=== PATIENT | female | born 1960 | race Hispanic/Latino ===

== ENCOUNTER 2017-12-14 11:38 | Emergency (ER) | payer BC, OTHER ==
[2017-12-14] MEDS: AUGMENTIN 875 MG TAB PO (14:16)
== END 2017-12-14 14:20 | disposition home or self-care (01) ==
LOC: M ED 11:38
DX: J01.90 Acute sinusitis, unspecified (principal); I10 Essential (primary) hypertension; Z88.5 Allergy status to narcotic agent; Z79.890 Hormone replacement therapy; Z79.899 Other long term (current) drug therapy
CPT/HCPCS: 87880

== ENCOUNTER → 2017-12-27 | Outpatient (REF) | payer OTHER, BC ==
[2017-12-27 18:02] LABS: BASO # 0.1 10^3/uL (0.0-0.2); BASO % 0.9 % (0.0-1.0); EOS # 0.3 10^3/uL (0.0-0.50); EOS % 3.6 % (0.0-3.0); HEMATOCRIT 41.7 % (36.0-47.0); HEMOGLOBIN 14.4 g/dl (12.0-15.5); IMMATURE GRANULOCYTE % 0.4 % (0-3.0); LYMPH # 1.9 10^3/uL (1.5-4.5); LYMPH % 27.9 % (24.0-44.0); MEAN CORPUSCULAR HEMOGLOBIN 31.1 pg (27.0-33.0); MEAN CORPUSCULAR HGB CONC 34.5 g/dl (32.0-36.5); MEAN CORPUSCULAR VOLUME 90.1 fl (80.0-96.0); MONO # 0.6 10^3/uL (0.0-0.8); MONO % 8.6 % (0.0-5.0); NEUTROPHILS # 4.1 10^3/uL (1.8-7.7); NEUTROPHILS % 58.6 % (36.0-66.0); PLATELET COUNT, AUTOMATED 257 10^3/uL (150-450); RED BLOOD COUNT 4.63 10^6/uL (4.00-5.40); RED CELL DISTRIBUTION WIDTH 12.5 % (11.5-14.5)
[2017-12-27 18:05] LABS: THYROID PEROXIDASE ANTIBODY > 1300.0 U/ML (<60.0)
[2017-12-27 18:17] LABS: ALBUMIN 3.6 GM/DL (3.2-5.2); ALBUMIN/GLOBULIN RATIO 0.86 (1.00-1.93); ALKALINE PHOSPHATASE 63 U/L (45-117); ALT/SGPT 69 U/L (12-78); ANION GAP 10 MEQ/L (8-16); AST/SGOT 40 U/L (7-37); BILIRUBIN,TOTAL 1.2 MG/DL (0.2-1.0); BLOOD UREA NITROGEN 16 MG/DL (7-18); C REACTIVE PROTEIN QUANTITATIV 0.37 MG/DL (0.00-0.30); CALCIUM LEVEL 9.3 MG/DL (8.5-10.1); CARBON DIOXIDE LEVEL 28 MEQ/L (21-32); CHLORIDE LEVEL 102 MEQ/L (98-107); CREATININE FOR GFR 0.65 MG/DL (0.55-1.30); FREE T4 1.38 NG/DL (0.76-1.46); GLOMERULAR FILTRATION RATE > 60.0 (>51); GLUCOSE, FASTING 176 MG/DL (70-100); LIPASE 175 U/L (73-393); POTASSIUM SERUM 3.6 MEQ/L (3.5-5.1); SODIUM LEVEL 140 MEQ/L (136-145); THYROID STIMULATING HORMONE 0.919 uIU/ML (0.358-3.740); TOTAL PROTEIN 7.8 GM/DL (6.4-8.2)
[2017-12-27 19:00] LABS: ERYTHROCYTE SEDIMENTATION RATE 30 mm/hr (0-30)
[2017-12-29 15:25] LABS: H PYLORI SERUM QUANT IgG ABY 0.49 (0.00-0.79)
== END ==
LOC: M SFHCPLAZ 15:19
DX: R13.12 Dysphagia, oropharyngeal phase (principal); E03.9 Hypothyroidism, unspecified; R51 Headache
CPT/HCPCS: 83690

== ENCOUNTER → 2017-12-28 | Outpatient (CLI) | payer BC, OTHER ==
[~2017-12-28] MED LIST: E-Z-GAS II EFFERVESCENT PACKET (SODIUM BICARB./CITRIC ACID/SIMETHICONE) As Ordered; E-Z-HD 98% w/w 340GM SUSP BTL As Ordered; E-Z-PAQUE 96% w/w SUSP 176GM BTL As Ordered
== END ==
LOC: M RAD 08:25
DX: R13.12 Dysphagia, oropharyngeal phase (principal)
CPT/HCPCS: 74220

== ENCOUNTER → 2018-01-27 | Outpatient (CLI) | payer OTHER | LOC: M WHC 11:06 | DX: E06.3 Autoimmune thyroiditis (principal) | CPT/HCPCS: 76536 ==

== ENCOUNTER → 2018-02-01 | Outpatient (CLI) | payer OTHER, BC | LOC: M ST 14:01 | DX: K22.4 Dyskinesia of esophagus (principal) | CPT/HCPCS: 74230 ==

== ENCOUNTER → 2018-04-04 | Outpatient (CLI) | payer OTHER | LOC: M WHC 12:43 | DX: Z12.31 Encounter for screening mammogram for malignant neoplasm of breast (principal); Z78.0 Asymptomatic menopausal state; Z80.41 Family history of malignant neoplasm of ovary | CPT/HCPCS: 77067 ==

== ENCOUNTER 2018-07-09 11:45 | Emergency (ER) | payer BC, OTHER ==
[~2018-07-09] VITALS: Ht 170.2 cm; Wt 109.1 kg
[~2018-07-09 11:45] MED LIST changes: +ATEN100T PO; +AUGM875T28 PO; -E-Z-GAS II EFFERVESCENT PACKET (SODIUM BICARB./CITRIC ACID/SIMETHICONE) As Ordered; -E-Z-HD 98% w/w 340GM SUSP BTL As Ordered; -E-Z-PAQUE 96% w/w SUSP 176GM BTL As Ordered; +LOSA100T5 PO; +NAPR-50 PO; +SYNT175T2 PO
[2018-07-09] MEDS ORDERED: APAP325T4 PO (11:55)
[2018-07-09] MEDS ORDERED: GLIM2TAB PO (11:55)
[2018-07-09] MEDS ORDERED: METF-839 PO (11:55)
[2018-07-09] MEDS ORDERED: IBUP-1022 PO ×2 (11:55→14:38)
[2018-07-09 12:53] LABS: INFLUENZA A AMPLIFICATION NEGATIVE (NEGATIVE); INFLUENZA B AMPLIFICATION NEGATIVE (NEGATIVE)
[2018-07-09] MEDS ORDERED: ACETAMINOPHEN 325 MG TAB PO ONE (13:45)
[2018-07-09] MEDS ORDERED: ALBUTEROL SULFATE 2.5 MG/0.5 ML INH NEB SOLN INH ONE (13:45)
[2018-07-09] MEDS ORDERED: ONDANSETRON 4 MG ORAL DISINTEGRATING TAB (Q0162 PER 1MG) PO ONE (14:00)
--- NOTE | 2018-07-09 14:20 | REP ---
CHEST PA AND LATERAL: 07/09/2018. COMPARISON: PA chest, 12/28/2017. CLINICAL HISTORY: Cough and fevers. FINDINGS: Lungs are well inflated. There is patchy atelectasis or infiltrate above the right diaphragm, new compared to the previous study. The left lung remains clear. The heart, mediastinal and hilar contours are unchanged. I see no vascular redistribution or edema. The aorta and airway intact. The bony thorax shows no focal lesion or compression deformity. No free air under the diaphragm. IMPRESSION: 1. Right base shows some patchy atelectasis or early infiltrate just above the diaphragm as a new finding compared to the December 2017 study. No effusion or other acute finding. Electronically Signed by Ayush Boles MD 07/09/2018 07:53 P
[2018-07-09] MEDS ORDERED: MUCI600T37 PO (14:38)
[2018-07-09] MEDS ORDERED: VENTAER INH (14:38)
[2018-07-09] MEDS ORDERED: AUGM875T28 PO (14:38)
[2018-07-09] MEDS ORDERED: ONDA4TAB6 PO (14:38)
[2018-07-09 14:50] VITALS: BP 128/65
== END 2018-07-09 14:52 | disposition home or self-care (01) ==
LOC: M ED 11:45
DX: J18.9 Pneumonia, unspecified organism (principal); J98.01 Acute bronchospasm; R91.8 Other nonspecific abnormal finding of lung field; Z90.49 Acquired absence of other specified parts of digestive tract; R51 Headache; I10 Essential (primary) hypertension; E78.00 Pure hypercholesterolemia, unspecified; K57.90 Diverticulosis of intestine, part unspecified, without perforation or abscess without bleeding; E03.9 Hypothyroidism, unspecified; Z79.899 Other long term (current) drug therapy; Z88.5 Allergy status to narcotic agent
CPT/HCPCS: 71046; 87631; 87880; 94640; 99284; Q0162

== ENCOUNTER → 2018-08-15 | Outpatient (CLI) | payer OTHER ==
[~2018-08-15] MED LIST changes: +APAP325T4 PO; +GLIM2TAB PO; +IBUP-1022 PO; +METF-839 PO; +MUCI600T37 PO; +ONDA4TAB6 PO; +VENTAER INH
--- NOTE | 2018-08-15 15:51 | REP ---
Clinical: Chest pain. Pneumonia . Comparison: 07/09/2018 . Technique: PA and lateral. Findings: The mediastinum and cardiac silhouette are normal. The lung france are clear and without acute consolidation, effusion, or pneumothorax. The skeletal structures are intact and normal. Impression: 1. No acute cardiopulmonary process. Electronically Signed by Jose Dickey MD 08/15/2018 03:42 P
[2018-08-15 17:43] LABS: HEMOGLOBIN A1c 5.8 %
[2018-08-15 17:48] LABS: ALBUMIN 3.7 GM/DL (3.2-5.2); ALT/SGPT 37 U/L (12-78); BILIRUBIN,TOTAL 0.7 MG/DL (0.2-1.0); BLOOD UREA NITROGEN 18 MG/DL (7-18); CALCIUM LEVEL 9.6 MG/DL (8.5-10.1); CARBON DIOXIDE LEVEL 30 MEQ/L (21-32); CHLORIDE LEVEL 102 MEQ/L (98-107); CREATININE FOR GFR 0.72 MG/DL (0.55-1.30); GLOMERULAR FILTRATION RATE > 60.0 (>51); GLUCOSE, FASTING 88 MG/DL (70-100); POTASSIUM SERUM 3.9 MEQ/L (3.5-5.1); SODIUM LEVEL 138 MEQ/L (136-145); THYROID STIMULATING HORMONE 0.335 uIU/ML (0.358-3.740); TOTAL PROTEIN 7.6 GM/DL (6.4-8.2)
== END ==
LOC: M WUC 15:13
PROVIDERS: ATTEND Internal Medicine
DX: Z00.00 Encounter for general adult medical examination without abnormal findings (principal); E03.9 Hypothyroidism, unspecified; I10 Essential (primary) hypertension; E11.9 Type 2 diabetes mellitus without complications; E78.5 Hyperlipidemia, unspecified; J18.9 Pneumonia, unspecified organism

== ENCOUNTER 2018-09-12 20:12 | Emergency (ER) | payer OTHER ==
[2018-09-11] MEDS: NITROGLYCERIN 0.4 MG SUBL TABLET SL PRN (21:17)
[~2018-09-12] VITALS: Ht 170.2 cm; Wt 108.0 kg
[~2018-09-12 20:12] MED LIST changes: -NAPR-50 PO; +NAPR-837 PO
[2018-09-12] MEDS ORDERED: ROSU5TAB4 PO (20:22)
[2018-09-12] MEDS ORDERED: KP F1200 PO (20:22)
[2018-09-12] MEDS ORDERED: ASPIRIN 81 MG CHEW TABLET PO ONE (20:45)
[2018-09-12] MEDS: NITROGLYCERIN 0.4 MG SUBL TABLET SL PRN ×2 (20:57→21:10)
[2018-09-12 21:07] LABS: BASO # 0.1 10^3/uL (0.0-0.2); BASO % 0.7 % (0.0-1.0); EOS # 0.3 10^3/uL (0.0-0.50); HEMATOCRIT 40.5 % (36.0-47.0); HEMOGLOBIN 13.9 g/dl (12.0-15.5); LYMPH # 2.4 10^3/uL (1.5-4.5); LYMPH % 33.7 % (24.0-44.0); MEAN CORPUSCULAR HEMOGLOBIN 30.6 pg (27.0-33.0); MEAN CORPUSCULAR HGB CONC 34.3 g/dl (32.0-36.5); MEAN CORPUSCULAR VOLUME 89.2 fl (80.0-96.0); MONO # 0.5 10^3/uL (0.0-0.8); MONO % 7.1 % (0.0-5.0); NEUTROPHILS # 3.9 10^3/uL (1.8-7.7); NEUTROPHILS % 54.1 % (36.0-66.0); PLATELET COUNT, AUTOMATED 265 10^3/uL (150-450); RED BLOOD COUNT 4.54 10^6/uL (4.00-5.40); WHITE BLOOD COUNT 7.2 10^3/uL (4.0-10.0)
[2018-09-12 21:19] LABS: INR 0.95; PROTHROMBIN TIME 12.8 SECONDS (12.1-14.4)
[2018-09-12 21:22] LABS: D-DIMER QUANT 393.46 ng/ml (<500)
[2018-09-12] MEDS ORDERED: ACETAMINOPHEN TAB 650MG DOSE (2X325MG) PO ONE (21:30)
[2018-09-12] MEDS ORDERED: PANTOPRAZOLE 40MG INJ (PROTONIX) (C9113) IV ONE (21:30)
[2018-09-12 21:41] LABS: ALBUMIN 3.7 GM/DL (3.2-5.2); ALT/SGPT 33 U/L (12-78); BILIRUBIN,DIRECT 0.2 MG/DL (0.0-0.2); BLOOD UREA NITROGEN 17 MG/DL (7-18); CALCIUM LEVEL 9.5 MG/DL (8.5-10.1); CARBON DIOXIDE LEVEL 28 MEQ/L (21-32); CHLORIDE LEVEL 103 MEQ/L (98-107); CPK CREATINE PHOSPHOKINASE 65 U/L (26-192); CREATININE FOR GFR 0.79 MG/DL (0.55-1.30); GLOMERULAR FILTRATION RATE > 60.0 (>51); GLUCOSE, FASTING 160 MG/DL (70-100); LIPASE 279 U/L (73-393); MB/CK RELATIVE INDEX 1.54 (< OR =4); NT-PRO BNP 35 PG/ML (<125); POTASSIUM SERUM 3.5 MEQ/L (3.5-5.1); SODIUM LEVEL 138 MEQ/L (136-145); TOTAL PROTEIN 7.6 GM/DL (6.4-8.2); TROPONIN I 0.03 NG/ML (< 0.10)
[2018-09-12] MEDS ORDERED: ISOVUE-370 76% 100ML VIAL (Q9967) As Ordered ONE (22:16)
[2018-09-12] MEDS ORDERED: GI COCKTAIL 50ML BTL(HYOSCYAMINE/MAALOX/LIDOCAINE VISCOUS)(1:3:1) PO ONE (23:15)
--- NOTE | 2018-09-12 23:30 | REPVR ---
EXAM: CT Angiography Chest With Contrast EXAM DATE/TIME: 09/12/2018 10:33 PM CLINICAL HISTORY: 58 years old, female; Chest pain; Additional info: R/O pe TECHNIQUE: Imaging protocol: Axial computed tomographic angiography images of the chest with intravenous contrast using CT angiography protocol. Coronal and sagittal reformatted images were created and reviewed. 3D rendering: MIP reconstructed images were created and reviewed. Radiation optimization: All CT scans at this facility use at least one of these dose optimization techniques: automated exposure control; mA and/or kV adjustment per patient size (includes targeted exams where dose is matched to clinical indication); or iterative reconstruction. Contrast material: ISOVUE 370; Contrast volume: 75 ml; Contrast route: IV; COMPARISON: CR PORTABLE CHEST X-RAY 09/12/2018 8:58 PM FINDINGS: Pulmonary arteries: Normal. No pulmonary emboli. Aorta: Normal. No aortic aneurysm. No aortic dissection. Lungs: No consolidation. No masses. Calcified granuloma in the right upper lobe. Mild groundglass opacities in the periphery of the lungs bilaterally. Pleural space: Normal. No pneumothorax. No pleural effusion. Heart: Normal. No cardiomegaly. No pericardial effusion. Lymph nodes: Unremarkable. No enlarged lymph nodes. Bones/joints: Unremarkable. No acute fracture. Soft tissues: Unremarkable. IMPRESSION: Negative for pulmonary embolism. Mild groundglass opacities in the periphery of the lungs bilaterally. Unknown etiology. Possible mild atelectasis versus contusions versus pneumonitis. Electronically signed by: Jade Gutierrez On 09/12/2018 23:29:37 PM
[2018-09-13 00:37] LABS: CK-MB VALUE MASS < 1.0 NG/ML (<3.6); CPK CREATINE PHOSPHOKINASE 54 U/L (26-192); MB/CK RELATIVE INDEX 1.85 (< OR =4); TROPONIN I 0.05 NG/ML (< 0.10)
--- NOTE | 2018-09-13 01:44 | ECGEPIP ---
Stationary ECG Study 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
[2018-09-13 02:38] LABS: CK-MB VALUE MASS < 1.0 NG/ML (<3.6); CPK CREATINE PHOSPHOKINASE 51 U/L (26-192); MB/CK RELATIVE INDEX 1.96 (< OR =4); TROPONIN I 0.04 NG/ML (< 0.10)
[2018-09-13] MEDS ORDERED: HEPARIN DRIP 25,000 UNITS in APPROPRIATE DILUENT 1 EA IV SCH (03:56)
[2018-09-13 04:00] VITALS: BP 166/72
[2018-09-13] MEDS ORDERED: HEPARIN SOD (PORCINE) 5000 UNITS/ML VIAL IV ONE (04:00)
[2018-09-13] MEDS ORDERED: NITROGLYCERIN 2% OINT 1 GM *U/D* PKT TOP ONE (04:00)
[2018-09-13 04:38] VITALS: BP 169/78
--- NOTE | 2018-09-13 08:21 | REP ---
Oral chest x-ray: Single view. History: Chest pain. Comparison chest x-ray: August 15, 2018. Findings: EKG monitoring electrodes overlie the chest. Heart is not enlarged. Lung france are clear. Pulmonary vasculature is not increased. No significant bony abnormality is appreciated. Impression: No acute disease. Electronically Signed by Poncho Casillas MD 09/13/2018 08:13 A
--- NOTE | 2018-09-13 23:09 | ECGEPIP ---
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
--- NOTE | 2018-09-13 23:10 | ECGEPIP ---
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
--- NOTE | 2018-09-13 23:12 | ECGEPIP ---
Stationary ECG Study [facility] - ED Test Date: 2018-09-13 Pat Name: BEREKET ROCKWELL Department: Room: - Gender: F Supervisor Plasma: : 1960 Requested By: Asim Paul Order Number: [id number] Reading MD: Asim Baker Measurements Intervals [place] Rate: 65 P: 48 [place]: 200 QRS: -37 QRSD: 160 T: 98 QT: 494 QTc: 517 Interpretive Statements SINUS RHYTHM MARKED LEFT AXIS DEVIATION LEFT BUNDLE BRANCH BLOCK, NEW AND RECURRENT COMPARED TO RECENT PRIOR, CONSIDER ISCHEMIA ISCHEMIA Electronically Signed On 09-13-2018 23:12:15 EDT by Asim Baker
== END 2018-09-13 04:59 | disposition short-term general hospital (02) ==
LOC: M ED 20:12
DX: I20.0 Unstable angina (principal); I44.7 Left bundle-branch block, unspecified; I10 Essential (primary) hypertension; E78.5 Hyperlipidemia, unspecified; R06.02 Shortness of breath; E11.9 Type 2 diabetes mellitus without complications; Z88.5 Allergy status to narcotic agent; Z79.899 Other long term (current) drug therapy; Z79.84 Long term (current) use of oral hypoglycemic drugs
CPT/HCPCS: 71045; 71275; 80048; 80076; 82550; 82553; 83690; 83880; 84484; 85025; 85379; 85610; 85730; 93005; 93041; 94760; 96374; 96375; 99285; C9113; Q9967

== ENCOUNTER → 2018-10-26 | Outpatient (CLI) | payer OTHER ==
[~2018-10-26] MED LIST changes: +KP F1200 PO; +ROSU5TAB4 PO
[2018-10-26 17:21] LABS: BLOOD UREA NITROGEN 16 MG/DL (7-18); CARBON DIOXIDE LEVEL 28 MEQ/L (21-32); CHLORIDE LEVEL 105 MEQ/L (98-107); CREATININE FOR GFR 0.76 MG/DL (0.55-1.30); GLOMERULAR FILTRATION RATE > 60.0 (>51); GLUCOSE, FASTING 100 MG/DL (70-100); POTASSIUM SERUM 3.9 MEQ/L (3.5-5.1); SODIUM LEVEL 140 MEQ/L (136-145); THYROID STIMULATING HORMONE 0.381 uIU/ML (0.358-3.740)
== END ==
LOC: M WUC 13:51
PROVIDERS: ATTEND Internal Medicine
DX: E03.9 Hypothyroidism, unspecified (principal); R07.89 Other chest pain

== ENCOUNTER → 2018-11-16 | Outpatient (CLI) | payer OTHER ==
[2018-11-16 16:40] LABS: BLOOD UREA NITROGEN 14 MG/DL (7-18); CALCIUM LEVEL 9.8 MG/DL (8.5-10.1); CARBON DIOXIDE LEVEL 31 MEQ/L (21-32); CHLORIDE LEVEL 104 MEQ/L (98-107); CREATININE FOR GFR 0.67 MG/DL (0.55-1.30); GLOMERULAR FILTRATION RATE > 60.0 (>51); GLUCOSE, FASTING 102 MG/DL (70-100); POTASSIUM SERUM 4.2 MEQ/L (3.5-5.1); SODIUM LEVEL 140 MEQ/L (136-145); TROPONIN I 0.04 NG/ML (< 0.10)
== END ==
LOC: M WUC 12:37
PROVIDERS: ATTEND Internal Medicine Cardiovascular Disease
DX: R07.9 Chest pain, unspecified (principal); R00.2 Palpitations

== ENCOUNTER → 2018-11-17 | Outpatient (CLI) | payer OTHER ==
[2018-11-17 17:08] LABS: HEMOGLOBIN A1c 6.2 %
[2018-11-17 17:14] LABS: ALBUMIN 3.8 GM/DL (3.2-5.2); ALT/SGPT 27 U/L (12-78); BLOOD UREA NITROGEN 14 MG/DL (7-18); CALCIUM LEVEL 9.6 MG/DL (8.5-10.1); CARBON DIOXIDE LEVEL 29 MEQ/L (21-32); CHLORIDE LEVEL 103 MEQ/L (98-107); CHOLESTEROL LEVEL 169 MG/DL (<200); CHOLESTEROL RISK RATIO 3.313 (<5); CREATININE FOR GFR 0.76 MG/DL (0.55-1.30); GLOMERULAR FILTRATION RATE > 60.0 (>51); GLUCOSE, FASTING 110 MG/DL (70-100); HDL CHOLESTEROL 51 MG/DL (>40); LDL CHOLESTEROL 94 MG/DL (<100); NON-HDL-C 118 MG/DL; POTASSIUM SERUM 4.1 MEQ/L (3.5-5.1); SODIUM LEVEL 138 MEQ/L (136-145); THYROID STIMULATING HORMONE 0.425 uIU/ML (0.358-3.740); TRIGLYCERIDES LEVEL 119 MG/DL (<150)
[2018-11-17 17:23] LABS: CREATININE, URINE 74.4 MG/DL; MALB URINE SIEMENS 12.3 MG/L; MAU/CREAT RATIO 16.5 MCG/MG (0.0-30.0)
== END ==
LOC: M WUC 11:15
PROVIDERS: ATTEND Internal Medicine
DX: I10 Essential (primary) hypertension (principal); E11.9 Type 2 diabetes mellitus without complications; E03.9 Hypothyroidism, unspecified; E78.5 Hyperlipidemia, unspecified

== ENCOUNTER 2018-12-20 08:30 | Emergency (ER) | payer OTHER ==
[~2018-12-20] VITALS: Ht 170.2 cm; Wt 104.5 kg
[~2018-12-20 08:30] MED LIST changes: -ROSU5TAB4 PO; +ROSU5TAB5 PO
[2018-12-20] MEDS ORDERED: NS 1,000 ML IV SCH (08:54)
[2018-12-20] MEDS ORDERED: KETOROLAC 30 MG/ML VIAL (J1885) IV ONE (09:00)
[2018-12-20] MEDS ORDERED: ONDANSETRON 4MG/2ML VIAL (J2405) IV ONE (09:00)
[2018-12-20 09:29] LABS: BASO # 0.1 10^3/uL (0.0-0.2); BASO % 0.7 % (0.0-1.0); EOS # 0.3 10^3/uL (0.0-0.50); EOS % 4.2 % (0.0-3.0); HEMATOCRIT 42.6 % (36.0-47.0); HEMOGLOBIN 14.4 g/dl (12.0-15.5); LYMPH # 1.3 10^3/uL (1.5-4.5); LYMPH % 18.2 % (24.0-44.0); MEAN CORPUSCULAR HEMOGLOBIN 30.5 pg (27.0-33.0); MEAN CORPUSCULAR HGB CONC 33.8 g/dl (32.0-36.5); MEAN CORPUSCULAR VOLUME 90.3 fl (80.0-96.0); MONO # 0.7 10^3/uL (0.0-0.8); MONO % 9.6 % (0.0-5.0); NEUTROPHILS # 4.6 10^3/uL (1.8-7.7); NEUTROPHILS % 66.9 % (36.0-66.0); PLATELET COUNT, AUTOMATED 268 10^3/uL (150-450); RED BLOOD COUNT 4.72 10^6/uL (4.00-5.40); WHITE BLOOD COUNT 6.9 10^3/uL (4.0-10.0)
[2018-12-20] MEDS ORDERED: fentaNYL 100 MCG/2 ML INJECTION (J3010) IV PRN (09:45)
[2018-12-20 10:04] LABS: ALBUMIN 3.9 GM/DL (3.2-5.2); BILIRUBIN,DIRECT 0.2 MG/DL (0.0-0.2); BILIRUBIN,TOTAL 1.2 MG/DL (0.2-1.0)
[2018-12-20] MEDS: fentaNYL 100 MCG/2 ML INJECTION (J3010) IV ONE ×2 (10:21→10:47)
--- NOTE | 2018-12-20 11:20 | REP ---
CT abdomen pelvis without IV or bowel contrast for right flank pain: There are no comparisons. The visualized lung fr[place] demonstrate focal areas of atelectasis in the left lower lobe but otherwise unremarkable. The unenhanced hepatic parenchyma, gallbladder, pancreas, spleen and adrenals are unremarkable. There are no renal calculi on the right on the left. There is no hydronephrosis on the right on the left. There is a left renal 13 mm exophytic simple cyst. The abdominal aorta is unremarkable. There is no retroperitoneal adenopathy or mass. There is no bowel distension or obstruction. Mesentery is unremarkable. Pelvis: The appendix and terminal ileum are unremarkable. The uterus, adnexa are unremarkable except for phleboliths. There is a circumferential suture ring in the sigmoid colon compatible with anastomosis. There are a few diverticula in the descending colon without evidence of diverticulitis. There is no ascites or adenopathy. The uterus, adnexa and bladder are unremarkable. I suspect there is anterior pelvic wall surgical mesh. This should be correlated with the patient's surgical history. Impression: There are no renal calculi. There are no ureteral calculi. There is no hydronephrosis or perinephric stranding. There are phleboliths in the pelvis. I suspect there is anterior pelvic wall mesh. This should be correlated with surgical history. Otherwise, essentially negative CT of the abdomen and pelvis. Electronically Signed by Ki Ayala MD 12/20/2018 11:11 A
[2018-12-20] MEDS ORDERED: fentaNYL 100 MCG/2 ML INJECTION (J3010) IV ONE ×2 (12:30→14:15)
[2018-12-20] MEDS ORDERED: GABAPENTIN 300 MG CAP PO ONE (12:45)
[2018-12-20] MEDS ORDERED: NEUR300C PO (15:26)
[2018-12-20] MEDS ORDERED: PERC5TAB12 PO (15:27)
[2018-12-20] MEDS ORDERED: VALA1TAB2 PO (15:33)
[2018-12-20 15:56] VITALS: BP 138/69
== END 2018-12-20 15:58 | disposition home or self-care (01) ==
LOC: M ED 08:39
DX: R10.9 Unspecified abdominal pain (principal); R21 Rash and other nonspecific skin eruption; Z86.19 Personal history of other infectious and parasitic diseases; E11.9 Type 2 diabetes mellitus without complications; Z87.440 Personal history of urinary (tract) infections; Z88.5 Allergy status to narcotic agent; Z79.899 Other long term (current) drug therapy; Z79.84 Long term (current) use of oral hypoglycemic drugs
CPT/HCPCS: 74176; 80047; 80076; 81001; 83690; 85025; 96374; 96375; 96376; 99285; J1885; J2405; J3010

== ENCOUNTER → 2019-06-22 | Outpatient (CLI) | payer OTHER, BC ==
[~2019-06-22] MED LIST changes: -GLIM2TAB PO; +GLIM2TAB4 PO; +NEUR300C PO; +PERC5TAB12 PO; +VALA1TAB64 PO
== END ==
LOC: M PLALAB 09:28
PROVIDERS: ATTEND Physician Assistant
DX: R07.89 Other chest pain (principal)

== ENCOUNTER → 2019-11-28 | Outpatient (CLI) | payer OTHER ==
[~2019-11-28] MED LIST changes: +VALA1TAB5 PO; -VALA1TAB64 PO
--- NOTE | 2019-11-28 16:42 | REP ---
RENAL ULTRASOUND WITH DUPLEX DOPPLER RENAL ARTERY EVALUATION: Real-time ultrasound evaluation of kidneys performed. Kidneys are normal in size and echotexture, right kidney measuring 12.6 x 6.9 x 5.3 cm, and left kidney 11.7 x 6.2 x 6.0 cm. There is no hydronephrosis bilaterally. There is a cyst in the upper left kidney laterally 1.4 cm in diameter. Urinary bladder is not well distended and not well evaluated. Real-time ultrasound evaluation and duplex Doppler interrogation of the renal arteries is performed bilaterally. Peak systolic velocity of the abdominal aorta at the level of the renal arteries is 68.8 cm/s. Peak systolic velocity of the main right renal artery is 80.4 cm/s, although the origin of the main right renal artery is not visualized due to overlying bowel gas. [id number] ratio 1.2. Resistive indices are measured in the upper, middle, and lower thirds of the right kidney and range between 0.62 and 0.67. Acceleration times range between 0.016 and 0.047. Proximal left renal artery is not visualized. Distally, peak systolic velocity is 62.7 cm/s, [id number] ratio 0.9. Resistive indices left kidney range between 0.62 and 0.65. Acceleration times range between 0.028 and 0.033. IMPRESSION: Somewhat limited exam due to overlying bowel gas, obscuring the proximal main renal arteries bilaterally. No definite duplex Doppler sonographic evidence of significant renal artery stenosis bilaterally. Complete evaluation could be obtained with CTA or MRA. Electronically Signed by Ki Cervantes MD 11/28/2019 07:53 P
== END ==
LOC: M RAD 08:36
PROVIDERS: ATTEND Physician Assistant
DX: I10 Essential (primary) hypertension (principal); Z87.448 Personal history of other diseases of urinary system

== ENCOUNTER → 2020-02-11 | Outpatient (REF) | LOC: M EMP 09:47 | PROVIDERS: ATTEND Family Medicine | DX: Z20.828 Contact with and (suspected) exposure to other viral communicable diseases (principal) ==

== ENCOUNTER → 2020-04-09 | Outpatient (CLI) | payer OTHER ==
[2020-04-09 11:11] LABS: ALBUMIN 3.8 GM/DL (3.2-5.2); ALT/SGPT 19 U/L (12-78); BLOOD UREA NITROGEN 19 MG/DL (7-18); CALCIUM LEVEL 9.3 MG/DL (8.5-10.1); CARBON DIOXIDE LEVEL 30 MEQ/L (21-32); CHLORIDE LEVEL 105 MEQ/L (98-107); CHOLESTEROL LEVEL 170 MG/DL (<200); CHOLESTEROL RISK RATIO 3.541 (<5); CREATININE FOR GFR 0.68 MG/DL (0.55-1.30); GLOMERULAR FILTRATION RATE > 60.0 (>51); GLUCOSE, FASTING 95 MG/DL (70-100); HDL CHOLESTEROL 48 MG/DL (>40); LDL CHOLESTEROL 95 MG/DL (<100); NON-HDL-C 122 MG/DL; SODIUM LEVEL 140 MEQ/L (136-145); TOTAL PROTEIN 7.8 GM/DL (6.4-8.2); TRIGLYCERIDES LEVEL 135 MG/DL (<150)
[2020-04-09 12:12] LABS: HEMOGLOBIN A1c 5.6 %
== END ==
LOC: M WUC 08:02
PROVIDERS: ATTEND Internal Medicine
DX: I10 Essential (primary) hypertension (principal); E11.9 Type 2 diabetes mellitus without complications; E03.9 Hypothyroidism, unspecified; E78.5 Hyperlipidemia, unspecified

== ENCOUNTER → 2021-05-02 | Outpatient (REF) | LOC: M LABSMTC 09:57 | PROVIDERS: ATTEND Family Medicine | DX: Z11.52 Encounter for screening for COVID-19 (principal); Z20.822 Contact with and (suspected) exposure to COVID-19 ==

== ENCOUNTER → 2022-02-05 | Outpatient (CLI) | payer OTHER | LOC: M WHC 12:55 | DX: Z12.31 Encounter for screening mammogram for malignant neoplasm of breast (principal) ==

== ENCOUNTER → 2022-03-12 | Outpatient (REF) ==
[2022-03-12 10:44] LABS: RSV AMPLIFICATION NEGATIVE (NEGATIVE)
== END ==
LOC: M LABSMTC 09:15
PROVIDERS: ATTEND Family Medicine
DX: Z20.822 Contact with and (suspected) exposure to COVID-19 (principal)